=== PATIENT | female | born 1995 | race Caucasian/White ===

== ENCOUNTER 2019-11-30 18:13 | Emergency (ER) | payer OTHER, SELFPAY ==
[2019-11-30 18:25] VITALS: BP 111/73; PULSE 86; RESP 18; TEMP 37.2; O2SAT 98
--- NOTE | 2019-11-30 19:09 | ED.FEMALEGU ---
HPI - Female Genitourinary General Chief complaint: Urogenital-Female Stated complaint: discarge/vaginal pain Time Seen by Provider: 11/30/19 19:09 Source: patient and RN notes reviewed Mode of arrival: ambulatory Limitations: no limitations History of Present Illness HPI Narrative: This is a 24 years old female presented office for evaluation of foul odor urine for six weeks. Associate with vaginal irritation and discharge at times but not currently. Denies urinary pain, frequency, or urgent. Admits to at least 4partners for the last the six month and the last partner she has; is currently being treated presumptively today for STI as well. Denies chance of . Admits to history of STD when she found out, she was . She states that she did not have any symptoms when she had STD in the past. Related Data Allergies Allergy/AdvReac Type Severity Reaction Status Date / Time No Known Allergies Allergy Verified 11/30/19 18:50 Review of Systems Review of Systems: Narrative: CONSTITUTIONAL: Denies fever CARDIOVASCULAR: Denies chest pain RESPIRATORY: Denies cough GASTROINTESTINAL: Denies nausea, vomiting, diarrhea. Reports lower abdominal pain at times. GENITOURINARY: Denies urinary symptoms. Reports vaginal discharge with foul odor SKIN: Denies rash MUSCULOSKELETAL: Denies acute back pain NEUROLOGIC: Denies lightheaded PMFSH Comments At time of signature, I agree with nursing past medical, surgical, social and family history. There is no relevant family history pertinent to the presenting complaint. Exam Narrative: Exam Narrative: GENERAL: This is a well-nourished, well-developed patient, in no apparent distress. CARDIOVASCULAR: Regular rate and rhythm without murmurs, gallops, or rubs. RESPIRATORY: Clear to auscultation. Breath sounds equal bilaterally. No wheezes, rales, or rhonchi. GASTROINTESTINAL: Abdomen soft, non-tender, nondistended. Bowel sounds are active. No hepato-splenomegaly, or palpable masses. No guarding. SKIN: warm, intact with no suspicious lesions or rash, good texture and turgor. NEURO: awake, alert, and oriented to person, place and time. There were no obvious focal neurologic abnormalities. Steady gait : patient declined vaginal exam at this time Akbar Coma Scale Eye Opening: Spontaneous 4 [place] Coma Scale Motor: Obeys Commands 6 Akbar Coma Scale Verbal: Oriented 5 MDM - Female Genitourinary MDM Narrative Medical decision making narrative: Discharge instructions reviewed with patient, as well as provided in writing per nursing staff. The instructions also include specific and strict return/GO TO THE ER as well as f/u information. All questions have been answered, and the patient* deny any further questions with discharge and discharge plan. Differential Diagnosis Differential diagnosis: Likely urinary tract infection, bacterial vaginosis, trichomoniasis, cervicitis, vaginitis, cystitis and dysmenorrhea Lab Data Attestation: I reviewed the patient's lab results. Labs: Urine Glucose Negative Reference Range: Negative Urine Bilirubin Negative Reference Range: Negative Urine Ketone Negative Reference Range: Negative Urine Specific [place] 1.025 Reference Range:1.001-1.035 Urine Blood Trace Reference Range: Negative * * Urine pH 6.5 Reference Range: 5.0-9.0 Urine Protein Trace Reference Range: Negative Urine Urobilinogen 0.2 Reference Range: 0.2-1.0 Urine Nitrate Positive Reference Range: Negative Urine Leukocyte 1+ Reference Range: Negative Urine Color Yellow Reference Range: Yellow Urine Characteristics Cloudy Critic
[2019-11-30] MEDS: AZITHROMYCIN 250 MG TABLET 1000 MG PO (19:41)
[2019-11-30] MEDS: cefTRIAXone 250 MG VIAL IM (19:42)
[2019-11-30] MEDS: LIDOCAINE HCL 1% LOCAL INJ 20 ML VIAL IM (19:42)
== END 2019-11-30 20:05 | disposition home or self-care (01) ==
PROVIDERS: Emergency Provider Nurse Practitioner
DX: Z20.2 Contact with and (suspected) exposure to infections with a predominantly sexual mode of transmission (principal)
CPT/HCPCS: 81003; 87077; 87086; 87088; 87186; 87491; 87591; 87661; 96372; 99214; A9270; G0463; J0696

== ENCOUNTER 2021-02-13 18:11 | Emergency (ER) | payer OTHER, SELFPAY ==
--- NOTE | 2021-02-13 18:12 | ED.FEMALEGU ---
HPI - Female Genitourinary General Chief complaint: Urogenital-Female Stated complaint: std test Time Seen by Provider: 02/13/21 18:12 Source: patient and RN notes reviewed History of Present Illness HPI Narrative: Patient is a 26-year-old female who presents the urgent care with complaints of possible STD. Patient states that it is been going around and she has had 2 recent partners. Patient has been having unprotected sex with such partners. States that she has been having watery clear to white vaginal discharge for 1 month with some intermittent low back pain. Denies of any urinary symptoms such as burning with urination, frequency, urgency, hematuria. Patient denies of any known contact with an STD. States that her partner is also symptomatic. Denies of any abdominal pain, nausea, vomiting. No other acute complaints. No acute distress noted. Patient aware of the plan of care. Some parts of this dictation were generated by voice recognition software and may contain typographical and/or grammatical inaccuracies. Related Data Allergies Allergy/AdvReac Type Severity Reaction Status Date / Time No Known Allergies Allergy Verified 02/13/21 18:22 Review of Systems Review of Systems: Narrative: CONSTITUTIONAL: Denies fever, chills, or sweats. EYES: Denies visual changes, redness, or discharge. ENT: Denies rhinorrhea, congestion, sore throat, or otalgia. CARDIOVASCULAR: Denies chest pain, palpitations, or edema. RESPIRATORY: Denies cough or dyspnea. GASTROINTESTINAL: Denies abdominal pain, nausea, vomiting, or diarrhea. GENITOURINARY: Denies dysuria or hematuria. Reports of watery clear to white vaginal discharge SKIN: Denies rash or itching. MUSCULOSKELETAL: Reports of intermittent low back pain without joint pain or myalgia. NEUROLOGIC: Denies headache, numbness, or weakness. All other systems reviewed are negative, except as documented in HPI. PMFSH Comments At the time of my signature, I reviewed and agree with the nursing past medical, surgical, social, and family history. There is no relevant family history pertinent to the patient complaint. Exam Narrative: Exam Narrative: GENERAL: This is a well-nourished, well-developed patient, in no apparent distress. HEAD: normocephalic, atraumatic. EYES: PERRL. Sclera clear/white. Vision is grossly intact. EARS: External ears normal, auditory canals clear and without drainage, TMs normal without perforation. Hearing grossly intact. NOSE: External nose normal with no obvious nasal discharge, nares without redness, no rhinorrhea. THROAT: Mucous membranes moist, posterior pharynx clear. NECK: Neck supple, non-tender without lymphadenopathy, masses or thyromegaly. CARDIOVASCULAR: Regular rate and rhythm without murmurs, gallops, or rubs. RESPIRATORY: Clear to auscultation. Breath sounds equal bilaterally. No wheezes, rales, or rhonchi. GASTROINTESTINAL: Abdomen soft, non-tender, nondistended. Bowel sounds are active. No hepato-splenomegaly, or palpable masses. No guarding. SKIN: warm, intact with no suspicious lesions or rash, good texture and turgor. NEURO: awake, alert, and oriented to person, place and time. There were no obvious focal neurologic abnormalities. EXTREMITIES: No clubbing, cyanosis, or edema. No joint tenderness, effusion, or edema noted. No calf tenderness. Negative Homans sign bilaterally. BACK: Nontender without deformity or crepitance. No flank tenderness. Course Vital Signs Vital signs: Vital Signs Temperature 99 F 02/13/21 18:14 Pulse Rate 107 H 02/13/21 18:14 Respiratory Rate 16 02/13/21 18:14 Blood Pressure 106/71 02/13/21 18:14 Pulse Oximetry 100 02/13/21 18:14 Temperature 99 F 02/13/21 18:23 Pulse Rate 107 H 02/13/21 18:23 Respiratory Rate 16 02/13/21 18:23 Blood Pressure 106/71 02/13/21 18:23 Pulse Oximetry 100 02/13/21 18:23 Reviewed MDM - Female Genitourinary MDM Narrative Medical decision making narrative: You
[2021-02-13 18:14] VITALS: BP 106/71; PULSE 107; RESP 16; TEMP 37.2; O2SAT 100
[2021-02-13 18:23] VITALS: BP 106/71; PULSE 107; RESP 16; TEMP 37.2; O2SAT 100
--- NOTE | 2021-02-13 18:34 | PC.NURSE ---
1834-- ROCEPHIN 500MG IM GIVEN TO LT GLUTEAL. UNABLE TO SCAN MED BOTTLE DUE TO INCREASED DOSEAGE ON BOTTLE.
== END 2021-02-13 18:54 | disposition home or self-care (01) ==
PROVIDERS: Emergency Provider Nurse Practitioner Family
DX: N89.8 Other specified noninflammatory disorders of vagina (principal); M54.5 Low back pain
CPT/HCPCS: 81003; 87077; 87086; 87088; 87186; 87491; 87591; 87661; 99214; G0463; J0696

== ENCOUNTER 2021-06-12 17:13 | Emergency (ER) | payer OTHER, SELFPAY ==
[2021-06-12 17:18] VITALS: BP 117/76; PULSE 98; RESP 16; TEMP 36.4; O2SAT 100
--- NOTE | 2021-06-12 17:53 | ED.FEMALEGU ---
HPI - Female Genitourinary General Chief complaint: Urogenital-Female Stated complaint: std test Time Seen by Provider: 06/12/21 17:45 Source: patient, RN notes reviewed and old records reviewed Mode of arrival: ambulatory Limitations: no limitations History of Present Illness HPI Narrative: Patient presents today complaining of foul-smelling vaginal discharge that was cloudy in nature before she started her period last night. Patient was diagnosed with trichomonas in November and January and never finished her prescription for Flagyl during either visit. She denies any additional symptoms. Patient has 1 partner that she has unprotected intercourse with. She has had the same partner since she was diagnosed with trichomonas in November and January. Patient does not want to be tested or treated for gonorrhea or chlamydia today. MD elicited complaint: vaginal discharge Related Data Allergies Allergy/AdvReac Type Severity Reaction Status Date / Time No Known Allergies Allergy Verified 06/12/21 17:30 Review of Systems Review of Systems: CONSTITUTIONAL: Denies body aches, fever, chills, or sweats. EYES: Denies visual changes, redness, or discharge. ENT: Denies rhinorrhea, congestion, sore throat, or otalgia. CARDIOVASCULAR: Denies chest pain, palpitations, or edema. RESPIRATORY: Denies cough or dyspnea. GASTROINTESTINAL: Denies abdominal pain, nausea, vomiting, or diarrhea. GENITOURINARY: Denies dysuria or hematuria.+ Vaginal discharge SKIN: Denies rash, itching, or wounds. MUSCULOSKELETAL: Denies back pain, joint pain, or myalgia. NEUROLOGIC: Denies headache, numbness, tingling, or weakness. PSYCH: Denies depression or anxiety. PMFSH Comments At time of signature, I have reviewed and agree with nursing past medical, surgical, social and family history unless otherwise noted. Please see nursing chart for further information. There is no relevant family history pertinent to the presenting complaint Exam Narrative: GENERAL: Well-appearing, well-nourished, and in no acute distress. HEAD: Normocephalic, atraumatic. EYES: EOMI. No redness or drainage. Conjunctivae normal. ENT: Mucous membranes pink and moist. NECK: Normal AROM. CHEST: No respiratory distress. : Pelvic exam declined. EXTREMITIES: Normal range of motion. No edema. SKIN: Warm, dry, no rash. Capillary refill normal. Normal skin turgor. NEURO: No focal deficits. Alert and oriented x3. Gait steady. PSYCH: Normal affect. No signs of depression or anxiety. Course Vital Signs Vital signs: Vital Signs Temperature 97.6 F 06/12/21 17:18 Pulse Rate 98 06/12/21 17:18 Respiratory Rate 16 06/12/21 17:18 Blood Pressure 117/76 06/12/21 17:18 Pulse Oximetry 100 06/12/21 17:18 Temperature 97.6 F 06/12/21 17:18 Pulse Rate 98 06/12/21 17:18 Respiratory Rate 16 06/12/21 17:18 Blood Pressure 117/76 06/12/21 17:18 Pulse Oximetry 100 06/12/21 17:18 Reviewed. Pt has been instructed to follow up with his PCP regarding his elevated blood pressure today. MDM - Female Genitourinary Differential Diagnosis Differential diagnosis: Likely bacterial vaginosis, vaginitis and other (Trichomonas, gonorrhea, chlamydia) Critical Care Time Critical Care Time Critical Care Time: No Discharge Plan Discharge Clinical Impression: Vaginal discharge Patient Disposition: Home, Self-Care Condition: Stable Instructions: Antibiotic Form, Trichomoniasis (ED) Additional Instructions: Please take the Flagyl as prescribed until gone. Take all the pills at one time. It is very important that you finish the entire course this time. You will be notified of the test results by phone. Patient Language: Croatian Prescriptions: New metronidazole 500 mg tablet 2,000 mg PO ONCE Qty: 4 RF: 0 Follow-up/Referrals: PHYSICIAN,DECONTAMINATION TECHNICIAN [Primary Care Provider] - Time of Disposition: 18:03
== END 2021-06-12 18:05 | disposition home or self-care (01) ==
PROVIDERS: Emergency Provider Nurse Practitioner
DX: N89.8 Other specified noninflammatory disorders of vagina (principal)
CPT/HCPCS: 87661; 99213; G0463

== ENCOUNTER 2022-01-30 14:33 | Emergency (ER) | payer OTHER, SELFPAY ==
--- NOTE | ~2022-01-30 | XR_ITS ---
EXAMINATION: XR ankle RT min 3V, XR foot RT min 3V DATE: 01/30/2022 15:24 INDICATION: Right foot and ankle injury TECHNIQUE: 1. Anteroposterior, mortise, additional oblique and lateral view of the right ankle were obtained. 2. Dorsoplantar, two oblique and lateral views of the right foot were obtained. COMPARISON: None. FINDINGS: Alignment of the right foot and ankle is normal. No fracture or osteochondral lesion. Joint spaces ar e well maintained. No ankle joint effusion. The soft tissues are unremarkable. IMPRESSION: 1. . Negative right foot and ankle radiographs. Reviewed, dictated and finalized at location A. IMPRESSION: 1. . Negative right foot and ankle radiographs.
[2022-01-30 14:53] VITALS: BP 110/74; PULSE 87; RESP 14; TEMP 36.9; O2SAT 99
--- NOTE | 2022-01-30 15:07 | ED.LOWEXIN ---
HPI - Extremity Injury (Lower) General Chief Complaint: Extremity Injury, Lower Stated Complaint: right foot injury Time Seen by Provider: 01/30/22 14:46 Source: patient Mode of arrival: ambulatory (on crutches) Limitations: no limitations History of Present Illness HPI Narrative: This is a 67-year-old female that presents to the emergency department for right ankle injury. Sustained about a week ago. She was evaluated at another facility and placed in a splint for a distal fibular fracture. She took off the splint a couple of days ago because she spilled some tea on it. She missed her follow-up appointment with orthopedics, and was told she cannot reschedule it. Denies fever, erythema, edema, or numbness. Related Data Allergies Allergy/AdvReac Type Severity Reaction Status Date / Time No Known Allergies Allergy Verified 06/12/21 17:30 Review of Systems Review of Systems: CONSTITUTIONAL: Denies fever SKIN: Denies rash MUSCULOSKELETAL: Reports joint pain, and myalgia. NEUROLOGIC: Denies numbness All systems reviewed & are unremarkable except as noted in HPI and below PMFSH Past Medical History Medical History (Updated 01/30/22 @ 16:28 by Marianela Acuña PA-C) No active medical problems Social History Social History (Updated 01/30/22 @ 15:09 by Marianela Acuña PA-C) Smoking status: Never smoker Exam Narrative: GENERAL: Well-appearing, well-nourished, and in no acute distress. HEAD: Normocephalic, atraumatic. EYES: EOMI. EXTREMITIES: Normal range of motion. No edema or obvious deformity. Normal DP pulse. Normal sensation SKIN: Warm, dry, no rash. NEURO: No focal deficits. Alert and oriented x3. PSYCH: Normal mood and affect Course Vital Signs Vital signs: Vital Signs Temperature 98.5 F 01/30/22 14:53 Pulse Rate 87 01/30/22 14:53 Respiratory Rate 14 01/30/22 14:53 Blood Pressure 110/74 01/30/22 14:53 Pulse Oximetry 99 01/30/22 14:53 Oxygen Delivery Room Air 01/30/22 14:53 Temperature 98.5 F 01/30/22 14:53 Pulse Rate 87 01/30/22 14:53 Respiratory Rate 14 01/30/22 14:53 Blood Pressure 110/74 01/30/22 14:53 Pulse Oximetry 99 01/30/22 14:53 Oxygen Delivery Room Air 01/30/22 14:53 MDM - Extremity Injury (Lower) MDM Narrative Medical decision making narrative: Patient presents to the emergency department for right ankle injury sustained about a week ago. Reports she was told she had a distal fibular fracture and placed in a splint. She took the splint off a couple of days ago. She did not follow-up with orthopedics. She is afebrile and nontoxic-appearing. She is neurovascularly intact. Right ankle x-ray shows either a developmental non-closure of the physis or ununited and nondisplaced fracture with appearance favoring chronic. Patient will be placed in [place] wrap and instructed to continue use her crutches. She is to follow-up with orthopedics for further care. She was given warnings to return to the ER Imaging Data Radiologist's impression: ITS Impressions Ankle X-Ray 01/30/22 15:27 IMPRESSION: 1. . Negative right foot and ankle radiographs. ADDENDUM: 01/30/22 1553 ADDENDUM: There is a linear lucency with subtle sclerotic margins extending across the lateral malleolus just below the level of the tibial talar joint line which on initial review is felt to represent the physis. Upon further consideration however the physis should have closed as has occurred at the distal tibia. Both the sclerosis along the margin of the lucency as well as the lack of appreciable soft tissue swelling with argue against acute fracture. There is also no appreciable periosteal reaction to suggest healing of subacute fracture. Differential would include either an developmental nonclosure of the physis or ununited and nondisplaced fracture with appearance favoring chronic. Foot X-Ray 01/30/22 15:27
--- NOTE | 2022-01-30 15:19 | PC.NURSE ---
Radiology at bedside to obtain xrays of right foot and ankle.
== END 2022-01-30 16:48 | disposition home or self-care (01) ==
PROVIDERS: Emergency Provider Emergency Medicine
DX: S93.401A Sprain of unspecified ligament of right ankle, initial encounter (principal); S96.911A Strain of unspecified muscle and tendon at ankle and foot level, right foot, initial encounter; X58.XXXA Exposure to other specified factors, initial encounter
CPT/HCPCS: 73610; 73630; 99283

== ENCOUNTER 2024-04-25 18:36 | Emergency (ER) | payer BC, MEDICAID, SELFPAY ==
--- NOTE | ~2024-04-25 | XR_ITS ---
EXAM: XR wrist RT min 3V DATE: 04/25/2024 18:54 HISTORY: fall . COMPARISON: None available. FINDINGS: Normal mineralization. Dorsal cortical irregularity of the distal radius evident in the la teral view, not well seen in additional views. No lytic or blastic lesion. Joint spaces are maintaine d. No erosion or periosteal change. Soft tissues within normal limits. IMPRESSION: Apparent dorsal distal radial cortical irregularity, may represent subtle distal right ra dial fracture or artifact, correlate with pain/tenderness. Reviewed, dictated and finalized at location K. IMPRESSION: Apparent dorsal distal radial cortical irregularity, may represent subtle distal right radial fracture or artifact, correlate with pain/tenderness .
--- NOTE | ~2024-04-25 | XR_ITS ---
EXAM: XR foot LT min 3V DATE: 04/25/2024 18:54 HISTORY: fall . COMPARISON: None available. FINDINGS: Normal mineralization. No fracture or dislocation. No lytic or blastic lesion. Joint space s are maintained. No erosion or periosteal change. Soft tissues within normal limits. IMPRESSION: No acute osseous finding in the left foot. Reviewed, dictated and finalized at location K.
[2024-04-25 19:09] VITALS: BP 139/93; PULSE 72; RESP 18; TEMP 36.3; O2SAT 97
[2024-04-25 20:50] VITALS: BP 133/77; PULSE 60; RESP 16; TEMP 36.7; O2SAT 96
--- NOTE | 2024-04-25 23:14 | PC.NURSE ---
Patient LWBS without notifying housing inspector at unknown time. Patient was called twice in waiting area to be room with no answer.
== END 2024-04-25 23:14 | disposition left against medical advice (07) ==
LOC: ANHED 04-26 08:44
PROVIDERS: Emergency Provider Emergency Medicine
DX: S62.101A Fracture of unspecified carpal bone, right wrist, initial encounter for closed fracture (principal)
CPT/HCPCS: 73110; 73630; 99199